=== PATIENT | female | born 1965 | race Two or more races ===

== ENCOUNTER 2022-06-08 04:10 | Day surgery (SDC) | payer BC ==
[2022-06-04 10:47] VITALS: BMI 28.1
[2022-06-08] MEDS ORDERED: BUPIVACAINE HCL/PF 0.5% (5MG/ML) 10 ML VIAL ONE (11:01)
[2022-06-08] MEDS ORDERED: DEXMEDETOMIDINE HCL 200 MCG/2 ML IVPB ONE (11:05)
[2022-06-08] MEDS ORDERED: METHYLENE BLUE 50 MG/10 ML AMPUL ONE (11:11)
[2022-06-08] MEDS ORDERED: CEFAZOLIN 2 GM in DEXTROSE 5%-WATER - 100 ML IVPB ONE (11:14)
[2022-06-08] MEDS ORDERED: ceFAZolin SODIUM 1 GM VIAL IVPB ONE (12:20)
[2022-06-08] MEDS ORDERED: PROPOFOL 20 ML ONE (13:16)
[2022-06-08] MEDS ORDERED: ROCURONIUM BROMIDE 50 MG/5 ML SYRINGE ONE (13:22)
[2022-06-08] MEDS ORDERED: ONDANSETRON 4 MG/2 ML VIAL IVPUSH PRN (14:27)
[2022-06-08] MEDS ORDERED: PROMETHAZINE HCL 25 MG/1 ML VIAL IVPUSH PRN (14:27)
[2022-06-08] MEDS ORDERED: LACTATED RINGERS SOLUTION 1,000 ML IV SCH (14:30)
[2022-06-08] MEDS ORDERED: GLYCOPYRROLATE 0.2 MG/1 ML VIAL ONE (14:47)
[2022-06-08] MEDS ORDERED: NEOSTIGMINE METHYLSULFATE 0.5 MG/ML - 10 ML MDV ONE (14:47)
[2022-06-08] MEDS ORDERED: ACETAMINOPHEN 325 MG TABLET (FP) PO PRN (15:30)
[2022-06-08] MEDS ORDERED: DOCUSATE SODIUM 100 MG CAPSULE (FP) PO PRN (15:30)
[2022-06-08] MEDS ORDERED: oxyCODONE HCL 5 MG TABLET PO PRN (15:30)
[2022-06-08] MEDS: LACTATED RINGERS SOLUTION 1,000 ML/1,000 ML INFUS.BAG IV SCH ×2 (16:14→22:16)
[2022-06-08] MEDS ORDERED: ceFAZolin SODIUM 1 GM VIAL ONE (16:56)
[2022-06-08] MEDS: CEFAZOLIN SODIUM 2 GM in DEXTROSE 5%-WATER 100 ML IVPB SCH (17:35)
[2022-06-08] MEDS: IBUPROFEN 600 MG TABLET (FP) PO PRN (20:38)
[2022-06-08 22:09] VITALS: RESP 16
[2022-06-09] MEDS: CEFAZOLIN SODIUM 2 GM in DEXTROSE 5%-WATER 100 ML IVPB SCH ×2 (01:00→09:30)
[2022-06-09] MEDS: IBUPROFEN 600 MG TABLET (FP) PO PRN ×2 (03:00→13:06)
[2022-06-09] MEDS: LACTATED RINGERS SOLUTION 1,000 ML/1,000 ML INFUS.BAG IV SCH (06:26)
[2022-06-09 08:31] LABS: BASO % 0.3 % (0-2.0); EOS % 0.4 % (0-4.5); HEMATOCRIT 41.2 % (32.4-45.2); HEMOGLOBIN 13.2 GM/dL (10.7-15.3); MCH 25.7 pg (25.7-33.7); MCHC 31.9 g/dl (32.0-36.0); MEAN CELL VOLUME 80.6 fl (80-96); MEAN PLT VOLUME 8.1 fl (7.5-11.1); MONO % 6.1 % (3.8-10.2); NEUT % 66.2 % (42.8-82.8); PLATELET COUNT 218 10^3/uL (134-434); RBC 5.11 M/mm3 (3.60-5.2); RDW 14.4 % (11.6-15.6); WHITE BLOOD COUNT 6.6 K/mm3 (4.0-10.0)
[2022-06-09 08:55] LABS: CALCIUM 8.4 mg/dL (8.5-10.1)
[2022-06-09 08:56] LABS: BLOOD UREA NITROGEN 8.8 mg/dL (7-18)
[2022-06-09 08:59] LABS: CREATININE 0.6 mg/dL (0.55-1.3)
[2022-06-09 09:01] LABS: BILIRUBIN,TOTAL 0.7 mg/dL (0.2-1)
[2022-06-09] MEDS ORDERED: ENOXAPARIN NA (PORCINE) 40 MG/0.4 ML DISP.SYRIN SQ SCH (10:00)
[2022-06-09 10:26] VITALS: BP 122/75; PULSE 73; TEMP 98.6
== END 2022-06-09 12:25 | disposition home or self-care (01) ==
LOC: JASUSAT 04:10 → EDSTATUS 11:00 → JERBED 17:55 → J3W 17:55 → JASUSAT 06-09 12:25
PROVIDERS: ATTEND Obstetrics & Gynecology
CPT/HCPCS: 36415; 80053; 81025; 82962; 85025; 86850; 86900; 86901; 88305-TC; 94010; 94760; Q9968